=== PATIENT | female | born 1955 | race Asian ===

== ENCOUNTER → 2020-07-25 11:11 | Outpatient (CLI) | payer BC, SELFPAY ==
--- NOTE | ~2020-07-25 | MM_ITS ---
EXAMINATION: MM screening tino BI w jyothi HISTORY: Screening mammogram TECHNIQUE: Craniocaudal and mediolateral oblique 3-D tomosynthesis images were obtained and synthetic 2-D images were generated. CAD analysis was submitted and interpreted. COMPARISON: 07/15/2019, 12/2015, 05/05/2014 bilateral digital screening mammogram examinations BREAST PARENCHYMAL COMPOSITION: The breasts are extremely dense, which lowers the sensitivity of mamm ography. FINDINGS: Occasional benign calcifications are again noted. There is no evidence of suspicious mass, calcification, or architectural distortion to suggest malignancy in either breast. There has been no suspicious interval change. IMPRESSION: 1. No mammographic evidence of malignancy. 2. Recommend routine screening mammography in one year. BI-RADS Category 2: Benign finding(s). Reviewed, dictated and finalized at location A. RVISORY LIFEGUARD
== END ==
PROVIDERS: PCP Family Medicine; Visit Provider Obstetrics & Gynecology Gynecology
DX: Z12.31 Encounter for screening mammogram for malignant neoplasm of breast (principal)
CPT/HCPCS: 77063; 77067

== ENCOUNTER → 2021-08-15 13:55 | Outpatient (CLI) | payer BC, SELFPAY ==
--- NOTE | ~2021-08-15 | MM_ITS ---
EXAMINATION: MM screening tino BI w jyothi HISTORY: Screening mammogram, family history of breast cancer in her sister. TECHNIQUE: Craniocaudal and mediolateral oblique 3-D tomosynthesis images were obtained and synthetic 2-D images were generated. CAD analysis was submitted and interpreted. COMPARISON: 07/25/2020, 06/26/2019, 01/03/2016 BREAST PARENCHYMAL COMPOSITION: The breasts are extremely dense, which lowers the sensitivity of mamm ography. FINDINGS: Scattered benign-appearing calcifications are present. There is no evidence of suspicious m ass, calcification, or architectural distortion to suggest malignancy in either breast. There has bee n no suspicious interval change. IMPRESSION: 1. No mammographic evidence of malignancy. 2. Recommend routine screening mammography in one year. BI-RADS Category 2: Benign finding(s). Reviewed, dictated and finalized at location A. SERVICER
== END ==
PROVIDERS: PCP Family Medicine; Visit Provider Obstetrics & Gynecology Gynecology
DX: Z12.31 Encounter for screening mammogram for malignant neoplasm of breast (principal)
CPT/HCPCS: 77063; 77067

== ENCOUNTER → 2022-03-15 10:52 | Outpatient (CLI) | payer BC, SELFPAY ==
--- NOTE | ~2022-03-15 | DEXA_ITS ---
Bone Density Report Name: JOHAN EMERY Age: 66 Sex: Female Ethnicity: Date of : 1955 Indication: osteopenia; parental hip fracture; postmenopausal Referring Provider: ALE DANIELS Study: Bone densitometry was performed. Exam Date: March 15, 2022 Accession number: [id number] Bone Density: Region BMD T-score Z-score Classification AP Spine (L1-L4) 0.844 -1.8 -0.1 Osteopenia Femoral Neck (Left) 0.578 -2.4 -1.0 Osteopenia Total Hip (Left) 0.864 -0.6 0.5 Normal Femoral Neck (Right) 0.624 -2.0 -0.6 Osteopenia Total Hip (Right) 0.839 -0.8 0.3 Normal Total Hip Mean 0.852 -0.7 0.4 Normal World Health Organization criteria for BMD impression classify patients as: Normal (T-score at or above -1.0), Osteopenia (T-score between -1.0 and -2.5), or Osteoporosis (T-score at or below -2.5). 10-year Fracture Risk(1): Major Osteoporotic Fracture 12% Hip Fracture 1.2% Reported Risk Factors: [place] (), Neck BMD=0.578, BMI=21.8, parental fracture (1) FRAX(R) Version 3.08. Fracture probability calculated for an untreated patient. Fracture probability may be lower if the patient has received treatment. Previous Exams: Region Exam Age BMD T-score BMD Change BMD Change Date g/cm2 vs Baseline vs Previous AP Spine(L1-L4) 03/15/2022 66 0.844 -1.8 0.061* 0.008 07/12/2016 60 0.836 -1.9 0.054* 0.054* 09/07/2013 57 0.782 -2.4 Total Hip(Left) 03/15/2022 66 0.864 -0.6 0.058* 0.071* 07/12/2016 60 0.793 -1.2 -0.013 -0.013 09/07/2013 57 0.805 -1.1 Total Hip(Right) 03/15/2022 66 0.839 -0.8 0.051* 0.036* 07/12/2016 60 0.803 -1.1 0.015 0.015 09/07/2013 57 0.788 -1.3 *Denotes significance at 95% confidence level, LSC for AP Spine = 0.022 g/cm2, LSC for Total Hip = 0.027 g/cm2 Clinical Information Provided by Patient: Parent has had a hip fracture Has used the following medications: Prolia (i.e. denosumab), Vitamin D, Calcium Patient maximum height was 61 Menopause Age: 57 Does not regularly consume dairy products Drinks caffeinated beverages Onset of menses at age 14 Number of children 1 Impression: The patient has low bone mass, based on the Left Femoral Neck T-score. The patient has an estimated ten-year risk of hip fracture of 1.2% and an estimated ten-year risk of major fracture of 12%, based on
== END ==
PROVIDERS: PCP Obstetrics & Gynecology Gynecology; Visit Provider Family Medicine
DX: Z78.0 Asymptomatic menopausal state (principal); M85.89 Other specified disorders of bone density and structure, multiple sites
CPT/HCPCS: 77080

== ENCOUNTER 2022-06-11 09:56 | Outpatient (CLI) | payer BC, SELFPAY ==
--- NOTE | ~2022-06-11 | MR_ITS ---
MR breast BI wo/w con 06/11/2022 15:56 CDT INDICATION: Dense breasts. TECHNIQUE: MRI of the breasts perform using standard protocol pre-and post IV contrast with the follo wing sequences: Axial T2 STIR, axial T1, axial vibrant T1 with fat suppression precontrast and multip hasic postcontrast. COMPARISON: Mammogram dated 08/15/2021 and 07/25/2020 FINDINGS: There are no abnormalities on the precontrast sequences. There is moderate background paren chymal enhancement. In the lower inner quadrant of the right breast at 4:00, 4 cm from the nipple and 1.1 cm to the skin surface there is a 6 x 4 x 4 mm mass with rapid washout kinetics. No evidence of signal abnormalities in the axillary or internal mammary node distributions. There are a few small fo ci of nonmass-like enhancement in both breasts, likely background enhancement. LEFT BREAST: No signal abnormalities on precontrast sequences. There is moderate background parenchy mal enhancement. No enhancing lesions following contrast administration. No areas of enhancement m eeting threshold criteria on CAD analysis. No evidence of signal abnormalities in the axillary or i nternal mammary node distributions.] IMPRESSION: 1: Right breast: Mass of the right breast in the lower inner quadrant at 4:00, 4 cm from the nipple measuring 6 mm. Recommend further evaluation with right breast ultrasound. BI-RADS CATEGORY 0 - INCOM PLETE STUDY, NEED ADDITIONAL IMAGING EVALUATION. 2: Left breast: Scattered foci of nonmass-like enhancement, likely background enhancement. BI-RADS C ategory 3. Recommend 6 month follow-up MRI.. Reviewed, dictated and finalized at location A. IMPRESSION: 1: Right breast: Mass of the right breast in the lower inner quadrant at 4:00, 4 cm from the nipple measuring 6 mm. Recommend further evaluation with right b reast ultrasound. BI-RADS CATEGORY 0 - INCOMPLETE STUDY, NEED ADDITIONAL IMAGIN G EVALUATION. 2: Left breast: Scattered foci of nonmass-like enhancement, likely background enhancement. BI-RADS Category 3. Recommend 6 month follow-up MRI..
== END 2022-06-11 09:57 | disposition home or self-care (01) ==
PROVIDERS: PCP Family Medicine; Visit Provider Obstetrics & Gynecology Gynecology
DX: R92.8 Other abnormal and inconclusive findings on diagnostic imaging of breast (principal)
CPT/HCPCS: 77049; A9577; C8908

== ENCOUNTER → 2022-07-05 09:31 | Outpatient (CLI) | payer BC, SELFPAY ==
--- NOTE | ~2022-07-05 | US_ITS ---
US breast RT limited DATE: 07/05/2022 09:56 INDICATION: Reported abnormal an area and lower inner quadrant right breast finding on MR breast exam ination TECHNIQUE: Real-time imaging of lower inner quadrant of right breast COMPARISON: 06/11/2020, breast examination 08/15/2021 bilateral screening mammogram FINDINGS: No suspicious sonographic mass or shadowing is detected in the lower inner quadrant of the right breast. IMPRESSION: BI-RADS Category 1: Negative Reviewed, dictated and finalized at Location A. Reviewed, dictated and finalized at location A. UCTION SUPPORT DEVELOPER
== END ==
PROVIDERS: PCP Family Medicine; Visit Provider Obstetrics & Gynecology Gynecology
DX: R92.8 Other abnormal and inconclusive findings on diagnostic imaging of breast (principal)
CPT/HCPCS: 76642

== ENCOUNTER 2022-08-09 02:10 | Day surgery (SDC) | payer BC, SELFPAY ==
[2022-08-02 10:39] VITALS: BMI 21.3
[2022-08-09 11:27] VITALS: BP 127/60; PULSE 75; RESP 20; TEMP 36.3; O2SAT 98
--- NOTE | 2022-08-09 11:33 | PM.HPGS ---
History of Present Illness History of Present Illness Consent: Risks, benefits, and alternatives have been discussed and questions answered. Patient agrees to proceed with procedure. Chief complaint: hx of colon polyps Narrative: Shreya Harrison is a 66 year old female Referred for colon cancer screening. She had a polyp removed about 6 years ago. Review of Systems Review of Systems: All systems reviewed & are unremarkable except as noted in HPI and below PMFSH Past Medical History Medical History Depression Diabetes mellitus Essential hypertension HLD (hyperlipidemia) Normal colonoscopy 2011-polyp and 2017-polyp Osteopenia Paresthesia of foot, bilateral Vitamin D deficiency Surgical History Surgical History History of appendectomy Hx of section Family History Family History Other Malignant neoplasm of prostate Hypertension Other Family history of cardiac disorder Family history of dementia Social History Social History Smoking status: Never smoker Second hand tobacco smoke exposure: No Alcohol intake: current Alcohol use details: very occasional Substance use: never Substance use type: does not use Living arrangements: with family Gender identity (if verbalized by the patient): Female Spiritual care concerns: No Meds Home Medications and Allergies Home Medications Medication Instructions Recorded Confirmed Type ergocalciferol (vitamin D2) 1,250 50,000 unit PO .biweekly 06/30/19 08/02/22 History mcg (50,000 unit) capsule (Vitamin D2) cnbmrbu-bebryfejd-fxek 333 mg-133 1 tablet PO DAILY 05/04/22 08/02/22 History mg-5 mg tablet coenzyme Q10 10 mg capsule (Co 10 mg PO DAILY 05/04/22 08/02/22 History Q-10) glucosamine [id number]-[id number]-Bjfpbpvom 1 tablet PO DAILY 05/04/22 08/02/22 History jaylon 1,500 mg-400 unit-100 mg tablet (Osteo Bi-Flex (5-Loxin)) krill oil 500 mg capsule 500 mg PO DAILY 05/04/22 08/02/22 History ixjzfzpe-msl-oqtd 18 mg-FA 400 1 tablet PO DAILY 05/04/22 08/02/22 History mcg-calcium 500 mg-vit K 50 mcg tablet (Women's Multivitamin) amlodipine 2.5 mg tablet 2.5 mg PO DAILY #90 tabs 07/20/22 08/02/22 Rx olmesartan 20 mg tablet 20 mg PO DAILY #90 tabs 07/20/22 08/02/22 Rx rosuvastatin 20 mg tablet 20 mg PO DAILY #90 tabs 08/03/22 08/09/22 Rx Allergies Allergy/AdvReac Type Severity Reaction Status Date / Time Penicillins Allergy Mild Rash Verified 08/09/22 11:25 Vital Signs Vital Signs - 24 hr 08/09/22 11:27 Temperature 36.3 C L Pulse Rate 75 Respiratory Rate 20 Blood Pressure 127/60 Pulse Oximetry 98 Oxygen Delivery Room Air Exam Resp: Auscultation: clear to auscultation bilaterally Cardio: Rate: regular rate Rhythm: regular rhythm GI: GI Palp: Yes Soft to palpation and No Tenderness to palpation present (GI) Assessment and Plan Assessment and plan (1) Colon cancer screening: Code(s): Z12.11 - Encounter for screening for malignant neoplasm of colon Status: Acute Assessment and Plan: Colonoscopy with possible biopsy or polypectomy or cautery or injection of substances.
--- NOTE | 2022-08-09 11:41 | WPDANESEPPF ---
Anes - Initial Pre Proc Eval Procedure: Operation Date: 08/09/22 12:30 Proposed Procedures p Screening Colonoscopy - Valente Shore MD Date/Time: 08/09/22 11:41 Surgeon: Valente Shore MD Pre Op Diagnosis: hx of colon polyps Patient Data Age: 66 Gender: F Height: 1.55 m Weight: 50.8 kg Last Vital Signs Temp 36.3 C L 08/09/22 11:27 Pulse 75 08/09/22 11:27 Resp 20 08/09/22 11:27 BP 127/60 08/09/22 11:27 Pulse Ox 98 08/09/22 11:27 O2 Del Method Room Air 08/09/22 11:27 Allergies Allergy/AdvReac Type Severity Reaction Status Date / Time Penicillins Allergy Mild Rash Verified 08/09/22 11:25 Home Medications Medication Instructions Recorded Confirmed Type ergocalciferol (vitamin D2) 1,250 50,000 unit PO .biweekly 06/30/19 08/02/22 History mcg (50,000 unit) capsule (Vitamin D2) krykcnl-whsactkbd-vpsk 333 mg-133 1 tablet PO DAILY 05/04/22 08/02/22 History mg-5 mg tablet coenzyme Q10 10 mg capsule (Co 10 mg PO DAILY 05/04/22 08/02/22 History Q-10) glucosamine YCy-Q4-Ajsqyaxrn 1 tablet PO DAILY 05/04/22 08/02/22 History jaylon 1,500 mg-400 unit-100 mg tablet (Osteo Bi-Flex (5-Loxin)) krill oil 500 mg capsule 500 mg PO DAILY 05/04/22 08/02/22 History ttznnhns-ech-vvwk 18 mg-FA 400 1 tablet PO DAILY 05/04/22 08/02/22 History mcg-calcium 500 mg-vit K 50 mcg tablet (Women's Multivitamin) amlodipine 2.5 mg tablet 2.5 mg PO DAILY #90 tabs 07/20/22 08/02/22 Rx olmesartan 20 mg tablet 20 mg PO DAILY #90 tabs 07/20/22 08/02/22 Rx rosuvastatin 20 mg tablet 20 mg PO DAILY #90 tabs 08/03/22 08/09/22 Rx Patient hx anesthesia problems: none Family hx anesthesia problems: none Results Review: All pre-operative results and documents have been reviewed as part of the pre-operative evaluation. [facility] Past Medical History Medical History Depression Diabetes mellitus Essential hypertension HLD (hyperlipidemia) Normal colonoscopy 2011-polyp and 2017-polyp Osteopenia Paresthesia of foot, bilateral Vitamin D deficiency Surgical History Surgical History History of appendectomy Hx of section Family History Family History Other Malignant neoplasm of prostate Hypertension Other Family history of cardiac disorder Family history of dementia Social History Social History Smoking status: Never smoker Second hand tobacco smoke exposure: No Alcohol intake: current Alcohol use details: very occasional Substance use: never Substance use type: does not use Living arrangements: with family Gender identity (if verbalized by the patient): Female Spiritual care concerns: No Anes - Eval Final PreProcedure Day of Procedure 08/09/22 11:41 Patient weight: normal Heart: regular rate and rhythm Lungs: clear to auscultation and normal air movement Airway: Mallampati scale class II Neurological: alert and oriented Last oral intake: >/= 8 hours ASA classification: III Emergent: no Anesthetic plan: proceed Anesthesia type and monitoring: general GIVS Results Review: All pre-operative results and documents have been reviewed as part of the pre-operative evaluation. Informed Consent: The patient's anesthetic plan and its attendant risks and benefits were discussed with the patient/family/POA. Questions were solicited and answers provided to the satisfaction of the patient/family/POA.
[2022-08-09] MEDS: LACTATED RINGERS 1,000 ML 150 ML IV CONT (11:48)
[2022-08-09 13:02] VITALS: BP 114/62; PULSE 70; RESP 18; O2SAT 98
[2022-08-09 13:12] VITALS: BP 111/62; PULSE 69; RESP 17; O2SAT 99
[2022-08-09 13:22] VITALS: BP 151/72; PULSE 64; RESP 19; O2SAT 100
== END 2022-08-09 13:45 | disposition home or self-care (01) ==
PROVIDERS: PCP Family Medicine; Visit Provider Internal Medicine Gastroenterology
PROC: 0DJD8ZZ Inspection of Lower Intestinal Tract, Via Natural or Artificial Opening Endoscopic (ICD-10-PCS; CPT 45378; principal; 2022-08-09 12:30)
DX: Z12.11 Encounter for screening for malignant neoplasm of colon (principal); D12.2 Benign neoplasm of ascending colon; D12.5 Benign neoplasm of sigmoid colon; K64.8 Other hemorrhoids; I10 Essential (primary) hypertension; E78.5 Hyperlipidemia, unspecified; E11.9 Type 2 diabetes mellitus without complications; E55.9 Vitamin D deficiency, unspecified; F32.A Depression, unspecified; M85.80 Other specified disorders of bone density and structure, unspecified site
CPT/HCPCS: 45385; 88305; J2704; J7120

== ENCOUNTER 2023-01-28 10:20 | Outpatient (CLI) | payer BC, SELFPAY ==
--- NOTE | ~2023-01-28 | MR_ITS ---
MR breast BI wo/w con 01/29/2023 08:21 CDT INDICATION: Follow-up breast mass. TECHNIQUE: MRI of the breasts perform using standard protocol pre-and post IV contrast with the follo wing sequences: Axial T2 STIR, axial T1, axial vibrant T1 with fat suppression precontrast and multip hasic postcontrast. COMPARISON: Mammogram dated 08/15/2021, MRI breast dated 06/11/2022 and ultrasound of the right breas t dated 07/05/2022 FINDINGS: Right breast: There are no abnormalities on the precontrast sequences. There is moderate ba ckground parenchymal enhancement. In the lower inner quadrant of the right breast there is a circumsc ribed enhancing mass measuring 6 x 4 x 3 mm which measured 6 x 4 x 4 mm on prior examination. There a re rapid washout kinetics. No significant interval change. This masses located 4.2 cm from the nipple and 1.1 cm to the skin surface. In the lower outer quadrant of the right breast there is a 3 mm foci of enhancement, too small to characterize, likely an intramammary lymph node. In the lower inner cori drant of the right breast there is a 7 x 2 x 3 mm linear nonmass-like enhancement, not definitely see n on prior examination. There is rapid washout kinetics. No evidence of signal abnormalities in the a xillary or internal mammary node distributions. LEFT BREAST: No signal abnormalities on precontrast sequences. There is moderate background parenchy mal enhancement. No enhancing lesions following contrast administration. There are a few areas of n onmass-like enhancement scattered throughout the left breast, most likely background enhancement. No areas of enhancement meeting threshold criteria on CAD analysis. No evidence of signal abnormalitie s in the axillary or internal mammary node distributions.] IMPRESSION: 1: Right breast: Probable benign right breast masses with stable appearing 6 mm mass in the lower in ner quadrant compared with prior MRI. Recommend follow-up diagnostic bilateral mammogram with additio nal ultrasound for further assessment. BI-RADS Category 3. 2: Left breast: Negative. No evidence of malignancy. BI-RADS Category 2.. Recommend annual mammogr aphy follow-up. Reviewed, dictated and finalized at location A. IMPRESSION: 1: Right breast: Probable benign right breast masses with stable appearing 6 m m mass in the lower inner quadrant compared with prior MRI. Recommend follow-up diagnostic bilateral mammogram with additional ultrasound for further assessme nt. BI-RADS Category 3. 2: Left breast: Negative. No evidence of malignancy. BI-RADS Category 2.. Re commend annual mammography follow-up.
== END 2023-01-28 10:21 | disposition home or self-care (01) ==
PROVIDERS: PCP Family Medicine; Visit Provider Obstetrics & Gynecology Gynecology
DX: N63.14 Unspecified lump in the right breast, lower inner quadrant (principal)
CPT/HCPCS: 77049; A9577; C8908

== ENCOUNTER → 2023-03-06 08:59 | Outpatient (CLI) | payer BC, SELFPAY ==
--- NOTE | ~2023-03-06 | MMUS_ITS ---
EXAMINATION: MM diagnostic tino BI w jyothi, US breast BI complete HISTORY: Probable benign right breast masses with stable appearing 6 mm mass in the lower inner quadr ant reported on 03/06/2023 MR examination TECHNIQUE: ML, MLO and CC 3-D tomosynthesis images of both breasts were performed and synthetic 2-D i mages were generated. CAD analysis was submitted and interpreted. High resolution complete bilateral breast ultrasound examination including all 4 quadrants and subareolar areas was performed. COMPARISON: 01/28/2023 MRI breast 07/05/2022 Limited right breast ultrasound examination 06/11/2022 MRI breast examination 08/15/2021 bilateral screening mammogram BREAST PARENCHYMAL COMPOSITION: The breasts are extremely dense, which lowers the sensitivity of mamm ography. FINDINGS: MAMMOGRAPHIC FINDINGS: Occasional bilateral benign appearing microcalcifications are noted. No suspicious mass, architectural distortion, calcification, skin thickening or retraction is evident . ULTRASOUND: No suspicious mass or shadowing of either breast is evident. There are subcentimeter nodes on the right at 6:00 2 cm from the nipple and on the left at 6:00 3 cm from the nipple and 7:00 5 cm from the nipple. IMPRESSION: 1. Benign findings; no mammographic evidence of malignancy 2. Recommend annual mammographic screening is recommended BI-RADS Category 2: Benign finding(s). Reviewed, dictated and finalized at location A. IMPRESSION: 1. Benign findings; no mammographic evidence of malignancy 2. Recommend annual mammographic screening is recommended BI-RADS Category 2: Benign finding(s).
== END ==
PROVIDERS: PCP Obstetrics & Gynecology Gynecology; Visit Provider Obstetrics & Gynecology Gynecology
DX: N63.10 Unspecified lump in the right breast, unspecified quadrant (principal); R92.0 Mammographic microcalcification found on diagnostic imaging of breast
CPT/HCPCS: 76641; 77062; 77066; G0279

== ENCOUNTER → 2023-03-29 11:12 | Outpatient (CLI) | payer BC, SELFPAY ==
--- NOTE | ~2023-03-29 | XR_ITS ---
Cervical Spine: AP, lateral, open-mouth views Clinical History: Pain Findings: There is minimal reversal normal cervical lordosis. There is minimal grade 1 retrolisthesis of C5 over C6. No fracture identified. The intervertebral disc spaces are well maintained. Pre-vert ebral soft tissues are unremarkable. Impression: Minimal grade 1 retrolisthesis of C5 over C6. Reviewed, dictated and finalized at location . Impression: Minimal grade 1 retrolisthesis of C5 over C6.
--- NOTE | ~2023-03-29 | XR_ITS ---
Lumbosacral Spine: AP, oblique, and lateral views Clinical History: Pain Findings: The normal lordotic curve is maintained. The vertebral bodies and posterior elements are i ntact. There are mild degenerative disc changes in the lumbar spine. There is moderate facet arthropa thy throughout the lumbar spine. The sacroiliac joints are normally outlined. Impression: Mild degenerative disc changes, and moderate facet arthropathy in the lumbar spine. Reviewed, dictated and finalized at location M. Impression: Mild degenerative disc changes, and moderate facet arthropathy in the lumbar sp ine.
== END ==
PROVIDERS: PCP Family Medicine; Visit Provider Physician Assistant
DX: M54.9 Dorsalgia, unspecified (principal); M54.2 Cervicalgia
CPT/HCPCS: 72050; 72110

== ENCOUNTER 2024-01-09 07:24 | Outpatient (CLI) | payer BC, SELFPAY ==
--- NOTE | ~2024-01-09 | MR_ITS ---
MRI of the cervical spine Clinical History: Radiculopathy Technique: Axial T2-weighted and gradient images, and sagittal T1-weighted, T2-weighted, and STIR julian ges were acquired. Findings: There is 2 mm retrolisthesis of C5 over C6. No fracture seen. No suspicious bone marrow sig nal abnormality seen. At C2-C3, there is no disc bulge or herniation. No spinal canal stenosis, cord compression, or neural foraminal narrowing. At C3-C4, there is no significant disc bulge or herniation. No spinal canal stenosis, cord compressio n, or neural foraminal narrowing. At C4-C5, there is minimal disc osteophyte complex, with minimal canal stenosis but no pepe cord com pression. Bilateral neural foramina are preserved despite facet arthropathy. At C5-C6, there is disc ossify complex with mild canal stenosis but no pepe cord compression. There is right neural foraminal narrowing, and possible minimal left neural foraminal narrowing. At C6-C7, there is no significant disc bulge or herniation. No spinal canal stenosis or cord compress ion. There is minimal bilateral neural foraminal narrowing, right worse than left. No abnormal signal seen in the spinal cord. Paravertebral soft tissues are unremarkable. Impression: Mild degenerative spondylosis, as above. Reviewed, dictated and finalized at [facility]. Impression: Mild degenerative spondylosis, as above.
== END 2024-01-09 07:25 ==
PROVIDERS: PCP Family Medicine; Visit Provider Family Medicine
DX: M47.22 Other spondylosis with radiculopathy, cervical region (principal)
CPT/HCPCS: 72141

== ENCOUNTER 2024-04-07 12:22 | Outpatient (CLI) | payer BC, SELFPAY ==
--- NOTE | ~2024-04-07 | DEXA_ITS ---
Bone Density Report Name: JOHAN LERNER Age: 68 Sex: Female Ethnicity: White Date of : 1955 Indication: postmenopausal; screening for osteoporosis; height loss; Referring Provider: GAYATHRI CAGLE Study: Bone densitometry was performed. Exam Date: April 07, 2024 Accession number: [id number] Bone Density: Region BMD T-score Z-score Classification AP Spine(L1-L4) 0.778 -2.4 -0.6 Osteopenia Femoral Neck (Left) 0.512 -3.0 -1.5 Osteoporosis Total Hip (Left) 0.771 -1.4 -0.1 Osteopenia Femoral Neck (Right) 0.535 -2.8 -1.3 Osteoporosis Total Hip (Right) 0.801 -1.2 0.1 Osteopenia Total Hip Mean 0.786 -1.3 0.0 Osteopenia World Health Organization criteria for BMD impression classify patients as: Normal (T-score at or above -1.0), Osteopenia (T-score between -1.0 and -2.5), or Osteoporosis (T-score at or below -2.5). 10-year Fracture Risk: FRAX not reported because: Some T-score for Spine Total or Hip Total or Femoral Neck at or below -2.5 Treated for osteoporosis Clinical Information Provided by Patient: Is being treated for osteoporosis Has used the following medications: Boniva (i.e. ibandronate), Vitamin D, Calcium Patient maximum height was 61 Menopause Age: 52 No regular weight bearing exercise Does not regularly consume dairy products Drinks caffeinated beverages Onset of menses at age 14 Number of children 1 Impression: The patient has osteoporosis, based on the Left Femoral Neck T-score. Discussion: It is important to ask patients whether they are taking their medications and to encourage continued and appropriate compliance with their osteoporosis therapies to reduce fracture risk. It is also important to review their risk factors and encourage appropriate calcium and vitamin D intakes, exercise, fall prevention and other lifestyle measures. Follow-Up: Consider a repeat BMD and Vertebral Fracture Assessment (VFA) exam in 2 years or sooner if medically necessary, to reassess this patient's status. Reported by: LAUREN on 04/07/2024 1:03:00 PM. Reviewed, dictated and finalized at location AChad ZARAGOZA
== END 2024-04-07 12:23 | disposition home or self-care (01) ==
PROVIDERS: PCP Family Medicine; Visit Provider Student in an Organized Health Care Education/Training Program
DX: M81.0 Age-related osteoporosis without current pathological fracture (principal); M85.88 Other specified disorders of bone density and structure, other site; M85.852 Other specified disorders of bone density and structure, left thigh; M85.851 Other specified disorders of bone density and structure, right thigh
CPT/HCPCS: 77080

== ENCOUNTER 2024-04-07 12:31 | Outpatient (CLI) | payer BC, SELFPAY ==
--- NOTE | ~2024-04-07 | MM_ITS ---
EXAMINATION: MM screening tino BI w jyothi HISTORY: Screening TECHNIQUE: Craniocaudal and mediolateral oblique 3-D tomosynthesis images were obtained and synthetic 2-D images were generated. CAD analysis was submitted and interpreted. COMPARISON: Comparison to multiple prior studies sequentially, with oldest reviewed study dated 05/05. BREAST PARENCHYMAL COMPOSITION: Dense: The breasts are extremely dense, which lowers the sensitivity of mammography. FINDINGS: There is no evidence of suspicious mass, calcification, or architectural distortion to sugg est malignancy in either breast. There has been no suspicious interval change. IMPRESSION: 1. No mammographic evidence of malignancy. 2. Recommend routine screening mammography in one year. BI-RADS Category 1: Negative Reviewed, dictated and finalized at location B.
== END 2024-04-07 12:32 | disposition home or self-care (01) ==
LOC: ANHIMG 12:32
PROVIDERS: PCP Family Medicine; Visit Provider Obstetrics & Gynecology
DX: Z12.31 Encounter for screening mammogram for malignant neoplasm of breast (principal)
CPT/HCPCS: 77063; 77067

== ENCOUNTER 2024-04-14 06:46 | Outpatient (CLI) | payer BC, SELFPAY ==
--- NOTE | ~2024-04-14 | MR_ITS ---
Procedure: MR lumbar spine wo con Ordering provider: Yoly Barrientos PA-C History: . M54.50 - Low back pain, unspecified . Comparison: None. Technique: MRI lumbar spine without contrast. FINDINGS: SPINAL CORD: Normal. The cord ends at the level of L1. VERTEBRAL BODIES: Normal height and alignment. No compression fracture. Normal marrow signal. DISK SPACES: Loss of signal is seen in the discs of L3-L4, L4-L5 and L5-S1 suggestive of desiccation. L1-L2: normal. L2-L3: Normal. L3-4: Thickening of the ligamenta flava with bilateral facet joint disease. L4-L5: Diffuse disc bulge with thickening of the ligamenta flava. Bilateral facet joint disease. Soft tissue lesion is seen posterior to the inferior aspect of L5 in the left lateral recess which me asures 8.1 x 8.5 mm causing narrowing of the left lateral recess and compressing multiple nerve roots in the area. This may represent a schwannoma or neurofibroma. Extruded disc is less likely. L5-S1: Normal. PARASPINOUS SOFT TISSUES: Normal. IMPRESSION: No compression fracture of the lumbar spine. Soft tissues lesion seen in the left lateral recess at the level of L5 posteriorly and to the left me asuring 8.1 x 8.5 and may represent a cavernoma or neurofibroma. Sequestrated disc is less likely. Me ningioma also cannot be excluded. Although less likely. Reviewed, dictated and finalized at location A. IMPRESSION: No compression fracture of the lumbar spine. Soft tissues lesion seen in the left lateral recess at the level of L5 posterio rly and to the left measuring 8.1 x 8.5 and may represent a cavernoma or neurof ibroma. Sequestrated disc is less likely. Meningioma also cannot be excluded. A lthough less likely.
== END 2024-04-14 06:47 | disposition home or self-care (01) ==
PROVIDERS: PCP Family Medicine; Visit Provider Student in an Organized Health Care Education/Training Program
DX: M54.50 Low back pain, unspecified (principal)
CPT/HCPCS: 72148

== ENCOUNTER 2024-08-17 15:04 | Outpatient (CLI) | payer BC, SELFPAY ==
--- NOTE | ~2024-08-17 | MR_ITS ---
EXAMINATION: MR lumbar spine wo/w con DATE: 08/17/2024 15:48 INDICATION: Low back pain TECHNIQUE: Magnetic resonance imaging (MRI) of the lumbar spine was performed without and with 9 mL M ultihance intravenous contrast. Sequences included sagittal T2-weighted FSE, sagittal T2-weighted FS FSE, and sagittal and axial T1-weighted FSE. Postcontrast sequences included axial T2-weighted FSE, s agittal T1-weighted FSE, and axial and sagittal T1-weighted FS FSE. COMPARISON: 04/14/2024 FINDINGS: Alignment is normal. Vertebral body heights are normal. Normal L4 limbus vertebrae. Normal marrow sig nal. This desiccation without significant disc height loss at L2-L3 through L5-S1. The conus medullar is terminates at L1. There is normal signal in the caudal spinal cord. Unchanged 8-9 mm T1 and T2 hyp ointense avidly enhancing intrathecal lesion at the left side of the central canal at L5. No other ab normally enhancing lesions identified. The following disc levels are specifically discussed: T12-L1: The disc does not extend beyond the endplate margin. There is mild bilateral facet joint oste oarthritis. There is no neural foraminal stenosis. There is no central canal stenosis. L1-L2: The disc does not extend beyond the endplate margin. There is mild bilateral facet joint osteo arthritis. There is no neural foraminal stenosis. There is no central canal stenosis. L2-L3: Disc is mildly bulging. There is mild bilateral facet joint osteoarthritis. There is minimal b ilateral neural foraminal stenosis. There is minimal central canal stenosis. L3-L4: Disc is bulging. There is hypertrophy of the ligamentum flavum. There is moderate left and se prachi right facet joint osteoarthritis. There is mild bilateral neural foraminal stenosis. There is mi ld central canal stenosis. L4-L5: Disc is bulging. There is mild right and moderate left facet joint osteoarthritis. There is mi ld bilateral neural foraminal stenosis. There is mild central canal stenosis. L5-S1: Disc is mildly bulging. There is moderate bilateral facet joint osteoarthritis. There is mild bilateral neural foraminal stenosis. There is no central canal stenosis. There is however some mass e ffect exerted upon the nerve roots in the left lateral recess by the enhancing mass. IMPRESSION: 1. No interval change in a 8-9 mm enhancing mass in the central canal to left lateral recess at the l evel of L5 most likely neurogenic tumor and given the spherical morphology would favor schwannoma ove r meningioma or peripheral nerve sheath tumor. 2. Mild lumbar spondylosis. Reviewed, dictated and finalized at location B. [employer] IMPRESSION: 1. No interval change in a 8-9 mm enhancing mass in the central canal to left l ateral recess at the level of L5 most likely neurogenic tumor and given the sph erical morphology would favor schwannoma over meningioma or peripheral nerve sh eath tumor. 2. Mild lumbar spondylosis.
== END 2024-08-17 15:05 | disposition home or self-care (01) ==
PROVIDERS: PCP Family Medicine; Visit Provider Neurological Surgery
DX: M47.816 Spondylosis without myelopathy or radiculopathy, lumbar region (principal); R22.2 Localized swelling, mass and lump, trunk
CPT/HCPCS: 72158; A9577